=== PATIENT | female | born 1975 | race Caucasian/White ===

== ENCOUNTER → 2022-03-24 | Outpatient (CLI) | payer BC | LOC: KOH-I 11:26 | DX: R07.89 Other chest pain (principal) | CPT/HCPCS: 71250 ==

== ENCOUNTER → 2022-03-28 | Outpatient (CLI) | payer BC | LOC: CT 13:46 | DX: R07.89 Other chest pain (principal); R10.11 Right upper quadrant pain | CPT/HCPCS: 71260; Q9967 ==